=== PATIENT | female | born 1940 | race Caucasian/White ===

== ENCOUNTER 2020-06-10 10:19 | Observation (INO) | payer MEDICARE, SELFPAY ==
[2020-06-10] VITALS (10 sets, daily range): BP systolic 146–189; BP diastolic 58–109; PULSE 67–79; RESP 13–24; TEMP 36.3; O2SAT 97–100; BMI 31.5
--- NOTE | ~2020-06-10 | CT_ITS ---
EXAMINATION: CT brain wo con DATE: 06/12/2020 12:40 INDICATION: Closed head trauma TECHNIQUE: Computed tomography (CT) of the head was performed without intravenous contrast. The mA wa s adjusted according to patient size. Iterative reconstruction technique was employed. Exam dose: 60 5.33 mGy-cm total exam DLP. COMPARISON: CT brain Or MR brain FINDINGS: There are bilateral carotid siphon internal carotid artery calcifications. There is nonspecific diminished attenuation of the cerebral white matter, likely due to chronic small vessel ischemic changes. There is moderate cerebral and cerebellar atrophy. No intracranial mass lesion or hemorrhage or cerebrovascular accident is evident. No midline shift or mass effect effect. There is a cephalohematoma and subcutaneous emphysema in the high left posterior parietal area but no underlying skull fracture or cord contrecoup intracranial injury. No subdural o r epidural hematoma. There is some soft tissue density within the posterior left sphenoid sinus. Limited development of th e mastoid air cells. Bilateral hyperostosis frontalis interna, not likely of any clinical significance. IMPRESSION: No acute intracranial finding or skull fracture; posterior left parietal cephalohematoma , subcutaneous emphysema Cerebral atherosclerosis and chronic small vessel ischemic changes of the cerebral white matter Reviewed, dictated and finalized at [facility]. Reviewed, dictated and finalized at [facility]. IMPRESSION: No acute intracranial finding or skull fracture; posterior left pa rietal cephalohematoma, subcutaneous emphysema Cerebral atherosclerosis and chronic small vessel ischemic changes of the cereb ral white matter
--- NOTE | ~2020-06-10 | XR_ITS ---
EXAMINATION: XR chest 1V portable DATE: 06/10/2020 10:43 INDICATION: Fall. Hypertension and atrial fibrillation. TECHNIQUE: frontal view of the chest was obtained. COMPARISON: None FINDINGS: The lungs are clear with no focal airspace opacities, pulmonary edema, pleural effusion or pneumothor ax. . Mediastinal silhouette is within normal limits accounting for mild leftward rotation of the pat ient. Calcified bilateral hilar and mediastinal lymph nodes consistent with old granulomatous disease . IMPRESSION: 1. No acute cardiopulmonary disease. Reviewed, dictated and finalized at [facility].
--- NOTE | ~2020-06-10 | MR_ITS ---
EXAMINATION: MR brain/brain stem wo/w con DATE: 06/10/2020 17:57 INDICATION: Stroke. TECHNIQUE: Magnetic resonance imaging (MRI) of the brain and brainstem was performed without and with 16 mL MultiHance intravenous contrast. Sequences included sagittal and axial T1-weighted FSE, axial diffusion-weighted FS EPI, axial T2*-weighted GRE, axial T2-weighted FLAIR Propeller, and axial T2-we ighted Propeller. Postcontrast sequences included axial, sagittal, and coronal T1-weighted FSE. Appar ent diffusion coefficient (ADC) maps were created. COMPARISON: Head CT 06/10/2020 FINDINGS: There are scattered areas of nonspecific increased T2-weighted signal intensity in the cere bral white matter, which is within normal limits for the patient's age. There is no intracranial hemo rrhage, acute infarction, or abnormal intracranial mass lesion. The ventricles are normal in size. Th e mastoid air cells are normal. There is mild mucosal thickening in the paranasal sinuses. There are likely changes of ocular lens replacement surgeries. IMPRESSION: 1. Normal aging brain. Reviewed, dictated and finalized at [facility]. IMPRESSION: 1. Normal aging brain.
--- NOTE | ~2020-06-10 | CT_ITS ---
EXAMINATION: CT brain wo con, CT cervical spine wo con EXAM DATE: 06/10/2020 10:31 INDICATION: Fall, posterior head injury. TECHNIQUE: Spiral CT of the head was performed without contrast. Axial, coronal and sagittal images were reviewed. Spiral CT of the cervical spine was performed without contrast. Axial images were rev iewed. Coronal and sagittal reformatted images were also reviewed. The dose-length product (DLP) fo r this examination was 605.33 (accession [id number]), 299.42 (accession [id number]) mGy-cm. The exposure was tailored according to patient size, and iterative reconstruction (ASIR) was used as additional dose reduction technique. There is no prior study for comparison. FINDINGS: HEAD CT: There is hyperostosis frontalis. There is no acute intraparenchymal hemorrhage. No evidence of intraparenchymal brain mass lesion. No evidence of acute infarction. There is mild periventricul ar and subcortical hypodensity, nonspecific but probably related to small vessel ischemic disease. There is moderate prominence of the sulci and ventricles related to cerebral atrophy. There is intr acranial carotid arteriosclerosis. There is no mass effect or midline shift. There is no obstructiv e hydrocephalus suspected. There are no extra-axial collections. There are no acute calvarial fract ures. Patient has had bilateral ocular lens surgery. There is moderate-sized left posterior scalp c ontusion with small foci of subcutaneous gas indicating laceration. The visualized sinuses and mastoi d air cells are well aerated. CERVICAL CT: There is no evidence of acute cervical fracture. The odontoid process is intact. Pre- dens space is normal. Prevertebral soft tissue is normal. There are no soft tissue abnormalities id entified. There is no disc space widening or traumatic vertebral body subluxation suspected. There is moderate disc disease C5-6 and 6-7, advanced multilevel arthropathy. A detailed level by level ev aluation of spondylosis can be added as addendum if requested. IMPRESSION: 1. No acute intracranial findings or cervical fracture. 2. Moderate-sized left posterior scalp contusion, overlying laceration. 3. Age-related intracranial findings and cervical spondylosis. Reviewed, dictated and finalized at location [facility]. IMPRESSION: 1. No acute intracranial findings or cervical fracture. 2. Moderate-sized left posterior scalp contusion, overlying laceration. 3. Age-related intracranial findings and cervical spondylosis.
--- NOTE | 2020-06-10 10:30 | ECG_ITS ---
Measurements Intervals [place] Rate: 70 P: 76 MS: 144 QRS: 32 QRSD: 96 T: 64 QT: 403 QTc: 435 Interpretive Statements SINUS RHYTHM WITH MARKED SINUS ARRHYTHMIA BASELINE ARTIFACT- I, III, AVL, AVF NORMAL ECG Electronically Signed On 06-10-2020 12:10:16 CDT by Joel Berg D.O.
--- NOTE | 2020-06-10 10:40 | ED.HEATRA ---
HPI - Head Injury General Chief complaint: Head Injury Stated complaint: fall/posterior scalp lac Source: patient, EMS and old records reviewed Mode of arrival: EMS Limitations: no limitations History of Present Illness HPI Narrative: Patient is a 80-year-old female who presents to emergency department for evaluation of head injury that occurred just prior to arrival patient was reportedly standing and tripped over a concrete curb falling backwards striking the posterior head is unsure as to loss of consciousness presents per EMS. On arrival patient with GCS of 15 A&O x4. Patient is currently on warfarin for chronic atrial fibrillation. Patient notes she has been compliant with her medication. Patient notes dizziness since the fall that occurs with any head movement. Patient denies vomiting or other injury or complaints. Patient notes mild posterior headache Related Data Home Medications Medication Instructions Recorded Confirmed alprazolam See Rx Instructions .ROUTE .COMPLEX 06/10/20 amlodipine 06/10/20 lisinopril 20 mg BID 06/10/20 06/10/20 meloxicam DAILY 06/10/20 metformin mg BID 06/10/20 simvastatin 40 mg HS 06/10/20 06/10/20 warfarin 1600 06/10/20 warfarin 1600 06/10/20 Allergies Allergy/AdvReac Type Severity Reaction Status Date / Time No Known Allergies Allergy Verified 06/10/20 10:43 Review of Systems Review of Systems: All systems reviewed & are unremarkable except as noted in HPI and below PMFSH Past Medical History Medical History (Updated 06/10/20 @ 13:39 by Ramez Bay PA-C) Atrial fibrillation Hypertension Obesity Warfarin anticoagulation Family History Family History Mother Hypertension Family history of diabetes mellitus in first degree relative Family history of heart disease in male family member before age 55 Sibling Family history of arthritis Carcinoma of colon Family history of diabetes mellitus in first degree relative Social History Social History Smoking status: Never smoker Alcohol intake: never Gender identity (if verbalized by the patient): Female Exam Narrative: Exam Narrative: GENERAL: Well-appearing, obese, and in no acute distress. HEAD: Normocephalic, posterior scalp laceration EYES: PERRLA and EOMI. ENT: Nares clear, no rhinorrhea or epistaxis. Mucous membranes moist. NECK: Supple. No adenopathy or masses. CHEST: Clear to auscultation. No respiratory distress. No wheezes rales or rhonchi HEART: Regular rate and rhythm. No murmur heard. Normal peripheral pulses. ABDOMEN: Soft, nontender, nondistended EXTREMITIES: Normal range of motion. No edema. No cervical thoracic or lumbar tenderness SKIN: Warm, dry, no rash. NEURO: No focal deficits. Alert and oriented x3. Cranial nerves II through XII grossly intact. Normal speech. GCS of 15 PSYCH: Normal mood and affect. Course Course Emergency Course: Patient presented with head injury secondary to what was described as a mechanical fall patient since the fall has been dizzy and had difficulty with standing and ambulation was hydrated evaluated in the emergency department and will be brought into the hospital for further evaluation patient agrees with this plan ABCs and vital signs intact and stable Consultations Consultation #1: Discussed case with hospitalist Heydi who will admit the patient and will follow the patient would like the patient put on med telemetry will also have MRI ordered Date: 06/10/20 Time: 13:37 Vital Signs Vital signs: Vital Signs Temperature 97.4 F L 06/10/20 10:20 Pulse Rate 69 06/10/20 10:20 Respiratory Rate 18 06/10/20 10:20 Blood Pressure 154/80 H 06/10/20 10:20 Pulse Oximetry 99 06/10/20 10:20 Temperature 97.4 F L 06/10/20 10:20 Pulse Rate 73 06/10/20 12:07 Respiratory Rate 13 06/10/20 12:07 Blood Pressure 189/84
[2020-06-10 10:51] LABS: Glucose Point of Care 162 (65-105)
[2020-06-10] MEDS: MECLIZINE HCL 25 MG TABLET PO (11:10)
[2020-06-10] MEDS: SODIUM CHLORIDE 0.9% IV 500 ML 999 ML IV CONT (11:10)
[2020-06-10 11:13] LABS: INR 1.9; Prothrombin Time 22.1 Seconds (11.1-14.7)
[2020-06-10 11:13] LABS: Basophils Percent Auto 0.3 % (0.2-1.2); Eosinophils Absolute Auto 0.1 K/mm3 (0-0.3); Eosinophils Percent Auto 1.4 % (0-4.4); Hematocrit 35.9 % (37.0-47.0); Hemoglobin 11.5 g/dL (12.0-15.0); Immature Granulocyte Absolute 0.03 K/mm3 (0.00-0.031); Immature Granulocyte Percent A 0.5 % (0-0.5); Lymphocytes Absolute Auto 2.02 K/mm3 (0.9-3.2); Lymphocytes Percent Auto 31.4 % (18.3-44.2); Mean Corpuscular Hemoglobin 30.5 pg (26-34); Mean Corpuscular Volume 95.2 fl (80-100); Mean Platelet Volume 10.5 fl (7.4-10.4); Monocytes Absolute Auto 0.4 K/mm3 (0.1-0.6); Monocytes Percent Auto 6.4 % (2.6-8.5); Neutrophils Absolute Auto 3.9 K/mm3 (1.3-6.7); Platelet Count Result 170 k/mm3 (150-375); Red Blood Count 3.77 M/mm3 (4.2-5.4); Red Cell Distribution Width 12.4 % (11.5-14.5); White Blood Count 6.4 K/mm3 (4.5-10.0)
[2020-06-10 11:14] LABS: Partial Thromboplastin Time 28.3 SECONDS (22.3-36.8)
[2020-06-10 11:36] LABS: Troponin I < 0.012 ng/mL (0.000-0.034)
[2020-06-10] MEDS: lisinopriL 20 MG TABLET PO (12:05)
--- NOTE | 2020-06-10 12:10 | PC.NURSE ---
Attempted to take pt to bathroom. Pt needed assistance sitting up in bed and was too dizzy to stand up. Pt laid back down and used bedpan to void. EDP notified.
[2020-06-10 12:30] LABS: Add Urine Microscopic? YES; Appearance Urine Clear (Clear); Bilirubin Urine Negative (Negative); Blood Urine Negative (Negative); Color Urine Yellow (Yellow); Glucose Urine UA Negative (Negative); Ketones Urine Negative (Negative); Leukocyte Esterase Ur Trace LEU/UL (Negative); Mucus Urine Rare /lpf; Nitrate Urine Negative (Negative); Protein Urine Negative (Negative); RBC Urine 0-2 /hpf (0-2); Specific Grav Ur 1.019 (1.001-1.035); Squamous Epithelial Cell Urine Occasional /hpf (Few); Urobilinogen Urine Negative mg/dL (<2.0)
[2020-06-10 12:39] LABS: Amphetamine Screen Urine Negative (Negative); Barbiturate Screen Urine Negative (Negative); Benzodiazepines Screen Urine Positive (Negative); Cannabinoid Screen Urine Negative (Negative); Cocaine Screen Urine Negative (Negative); Methadone Screen Urine Negative (Negative); Opiate Screen Urine Negative (Negative); Phencyclidine Screen Urine Negative (Negative)
--- NOTE | 2020-06-10 14:00 | PM.IMHP ---
H&P: HPI History of Present Illness Date/Time: 06/10/20 14:00 Chief Complaint: Fall. Narrative: This is a 72-year-old female with paroxysmal atrial fibrillation on warfarin, hypertension, dyslipidemia, and type 2 diabetes mellitus who presented to the emergency department earlier today via EMS for evaluation after a fall. Just prior to arrival she lost her balance while stepping down a curb, causing her to fall back and strike her head. On EMS arrival she reported feeling dizzy when they helped stand her up and reportedly she seemed a bit confused and repetitive early on however is now alert and oriented x4. She does not believe that she lost consciousness and denies any other injury aside from a posterior scalp contusion. She has no complaints at the time my evaluation and specifically denies headache, diplopia, focal weakness, paresthesias, confusion, chest pain, pleuritic pain, palpitations, shortness of breath, nausea, vomiting, diarrhea, and dysuria. Review of Systems Review of Systems: Narrative: Twelve systems were reviewed with pertinent positives and negatives as per HPI. Except as documented, all other systems were reviewed and are negative. [facility] Past Medical History Medical History Anxiety Dyslipidemia Hypertension Obesity Paroxysmal atrial fibrillation Type 2 diabetes mellitus Warfarin anticoagulation Surgical History Surgical History (Updated 06/11/20 @ 00:24 by Francy Alex PA-C) History of bilateral cataract extraction History of cholecystectomy History of hysterectomy History of repair of right rotator cuff Family History Family History Mother Hypertension Family history of diabetes mellitus in first degree relative Family history of heart disease in male family member before age 55 Sibling Family history of arthritis Carcinoma of colon Family history of diabetes mellitus in first degree relative Social History Social History (Updated 06/11/20 @ 00:24 by Francy Alex PA-C) Social History: The patient is and lives with her and 1 son in [place]. Lifelong nonsmoker. No alcohol or illicit substance abuse. Her Oc is her surrogate decision maker. She wishes to be a full code. Meds Home Medications and Allergies Home Medications Medication Instructions Recorded Confirmed Type alprazolam 0.5 mg PO TID PRN 06/10/20 06/10/20 History amlodipine 5 mg PO DAILY 06/10/20 06/10/20 History aspirin [Adult Low Dose Aspirin] 81 mg PO DAILY 06/10/20 06/10/20 History glimepiride 4 mg PO DAILY 06/10/20 06/10/20 History lisinopril 20 mg BID 06/10/20 06/10/20 History meloxicam 15 mg PO DAILY 06/10/20 06/10/20 History metformin 1,000 mg BID 06/10/20 06/10/20 History simvastatin 40 mg PO HS 06/10/20 06/10/20 History warfarin 2 mg PO DAILY 06/10/20 06/10/20 History warfarin 4 mg PO DAILY 06/10/20 06/10/20 History Allergies Allergy/AdvReac Type Severity Reaction Status Date / Time No Known Allergies Allergy Verified 06/10/20 15:24 Vital Signs Vital Signs - 24 hr 06/10/20 10:20 06/10/20 10:50 06/10/20 12:07 Temperature 97.4 F L Pulse Rate 69 73 73 Respiratory Rate 18 24 H 13 Blood Pressure 154/80 H 178/109 H 189/84 H Pulse Oximetry 99 97 100 Exam Narrative: Exam Narrative: General: Well-developed female supine in bed in no distress. Weight: 83.4 kilograms. BMI: 31.6. HEENT: Posterior scalp laceration has been sutured. Some bruising around this area. PERRL, EOMI. Sclerae anicteric. Oral mucosa moist. Neck: Supple. No JVD. Respiratory: Lungs are clear to auscultation bilaterally. Cardiovascular: Regular rate and rhythm with S1-S2. Gastrointestinal: Abdomen is soft, nontender, and nondistended with positive bowel sounds. Skin: Warm and dry. No rash or lesions on limited exam. Extremities: No cyanosis, clubbing, or s
--- NOTE | 2020-06-10 14:40 | PCOTNOTE ---
OT evaluation attempted. Patient not yet in room from ED. Will need to be admitted by nursing prior to OT evaluation.
--- NOTE | 2020-06-10 15:00 | ADMGEN ---
This patient, Anusha Rice, was admitted to 2 Medical Room 249-01. Patient/family oriented to hospital policies and general routines including ID bracelet, bed and alarms, visiting hours, pain management, procedures, bathroom and other care routines, personal items, smoking policy, room service/diet, and visiting hours. Information on how to activate the Rapid Response Team has been discussed. Patient/Family are encouraged to report perceived risks to care and to ask questions if they do not understand what they are told or what they should do.
[2020-06-10 15:20] LABS: Alanine Aminotransferase 25 U/L (4-35); Albumin Level 4.4 g/dL (3.5-5.1); Alkaline Phosphatase 83 U/L (38-126); Anion Gap 9 mmol/L (8-16); Aspartate Amino Transferase 71 U/L (14-36); Bilirubin,Total 0.5 mg/dL (0.2-1.3); Blood Urea Nitrogen 13 mg/dL (7-17); Calcium 8.8 mg/dL (8.4-10.2); Carbon Dioxide 27 mmol/L (22-30); Chloride 102 mmol/L (98-107); Estimated CRCL calculation 69 ml/min; Estimated Glomerular Filt Rate > 60; Glucose 160 mg/dL (65-105); Potassium 4.3 mmol/L (3.4-5.0); Sodium 138 mmol/L (137-145)
[2020-06-10 15:34] LABS: Hemoglobin A1C 5.8 % (<5.7)
[2020-06-10] MEDS: ALPRAZolam (*CRX) 0.5 MG TABLET PO (16:22)
[2020-06-10 17:03] LABS: Glucose Point of Care 183 (65-105)
[2020-06-10 17:26] LABS: Hemoglobin A1C 5.8 % (<5.7)
[2020-06-10] MEDS: LACTATED RINGERS 1,000 ML 75 ML IV CONT (18:02)
[2020-06-10] MEDS: FAMOTIDINE 20 MG/2 ML VIAL IV PUSH (21:40)
[2020-06-10 21:50] LABS: Glucose Point of Care 131 (65-105)
[2020-06-11] VITALS (13 sets, daily range): BP systolic 139–163; BP diastolic 49–59; PULSE 73–95; RESP 16–18; TEMP 36.1–37; O2SAT 94–98
[2020-06-11] MEDS: ALPRAZolam (*CRX) 0.5 MG TABLET PO ×2 (00:13→20:00)
[2020-06-11 06:09] LABS: Basophils Percent Auto 0.3 % (0.2-1.2); Eosinophils Absolute Auto 0.1 K/mm3 (0-0.3); Eosinophils Percent Auto 2.2 % (0-4.4); Hematocrit 33.8 % (37.0-47.0); Hemoglobin 10.7 g/dL (12.0-15.0); Immature Granulocyte Absolute 0.01 K/mm3 (0.00-0.031); Immature Granulocyte Percent A 0.2 % (0-0.5); Lymphocytes Absolute Auto 2.19 K/mm3 (0.9-3.2); Lymphocytes Percent Auto 37.8 % (18.3-44.2); Mean Corpuscular HGB Conc 31.7 g/dl (32-36); Mean Corpuscular Hemoglobin 30.1 pg (26-34); Mean Corpuscular Volume 95.2 fl (80-100); Monocytes Absolute Auto 0.5 K/mm3 (0.1-0.6); Monocytes Percent Auto 8.8 % (2.6-8.5); Neutrophils Absolute Auto 2.9 K/mm3 (1.3-6.7); Neutrophils Percent Auto 50.7 % (45.5-73.1); Platelet Count Result 152 k/mm3 (150-375); Red Blood Count 3.55 M/mm3 (4.2-5.4); Red Cell Distribution Width 12.7 % (11.5-14.5); White Blood Count 5.8 K/mm3 (4.5-10.0)
[2020-06-11 06:16] LABS: INR 1.8; Prothrombin Time 21.9 Seconds (11.1-14.7)
[2020-06-11 06:26] LABS: Anion Gap 4 mmol/L (8-16); Blood Urea Nitrogen 9 mg/dL (7-17); Calcium 8.6 mg/dL (8.4-10.2); Carbon Dioxide 28 mmol/L (22-30); Chloride 105 mmol/L (98-107); Estimated CRCL calculation 69 ml/min; Estimated Glomerular Filt Rate > 60; Glucose 104 mg/dL (65-105); Potassium 4.3 mmol/L (3.4-5.0); Sodium 137 mmol/L (137-145)
[2020-06-11] MEDS: LACTATED RINGERS 1,000 ML 75 ML IV CONT ×2 (06:29→19:55)
[2020-06-11 07:42] LABS: Glucose Point of Care 134 (65-105)
[2020-06-11] MEDS: FAMOTIDINE 20 MG/2 ML VIAL IV PUSH ×2 (08:21→19:59)
[2020-06-11] MEDS: ASPIRIN 81 MG ENTERIC TABLET PO (08:22)
[2020-06-11] MEDS: GLIMEPIRIDE 2 MG TABLET 4 MG PO (08:22)
[2020-06-11] MEDS: lisinopriL 20 MG TABLET BY MOUTH ×2 (08:22→16:50)
[2020-06-11] MEDS: amLODIPine BESYLATE 5 MG TABLET PO (08:22)
[2020-06-11 11:27] LABS: Glucose Point of Care 109 (65-105)
--- NOTE | 2020-06-11 15:03 | PM.IMPN ---
Progress Note: A&P Assessment and Plan (1) Fall from ground level: Code(s): W18.30XA - Fall on same level, unspecified, initial encounter Status: Acute Assessment and Plan: patient with no loss of consciousness missed her step and fell down wound laceration to the scalp a status post sutures (2) Type 2 diabetes mellitus: Code(s): E11.9 - Type 2 diabetes mellitus without complications Status: Acute Assessment and Plan: patient on metformin and glipizide will hold insulin sliding scale as needed Accu-Cheks AC and HS (3) Paroxysmal atrial fibrillation: Code(s): I48.0 - Paroxysmal atrial fibrillation Status: Acute Assessment and Plan: rate controlled holding warfarin due to fall with closed trauma to the head (4) Closed head injury: Code(s): S09.90XA - Unspecified injury of head, initial encounter Status: Acute Assessment and Plan: status post suturing CT head reviewed MRI brain reviewed (5) Dizziness: Code(s): R42 - Dizziness and giddiness Status: Acute Assessment and Plan: will monitor blood pressure is stable (6) Normocytic anemia: Code(s): D64.9 - Anemia, unspecified Status: Acute Assessment and Plan: continue to monitor (7) Dyslipidemia: Code(s): E78.5 - Hyperlipidemia, unspecified Status: Acute Assessment and Plan: continue to monitor Subjective Date/time seen: 06/11/20 15:03 I a.m. very dizzy Review of Systems Review of Systems: Narrative: patient is feeling very dizzy when sitting up by the age of debate and dangling her feet Constitutional: Comments: no fevers no rigors no chills Eyes: Comments: no vision changes Cardiovascular: Comments: no syncope or near syncope no palpitations no chest pain or shortness of breath no PND no orthopnea Respiratory: Comments: no cough no sputum production Gastrointestinal: Comments: no nausea no vomiting no abdominal pain no diarrhea Genitourinary: Comments: no pain or burning with urination Musculoskeletal: Comments: no muscle aches or joint pain Integumentary/Breasts: Comments: his scalp wound laceration after fall with sutures on Neurologic: Comments: no loss of consciousness no sensorimotor deficit Exam Narrative: Exam Narrative: laying in bed Const: General: comfortable, no acute distress, well developed, alert and awake Nutritional Appearance: overweight Orientation/consciousness: patient oriented x3 HENMT: Head: normal to inspection, normocephalic, atraumatic and laceration (coronal-occipital) Ears: hearing grossly normal bilaterally Face and sinus: normal facial exam Eyes: General: appearance normal, both eyes and all related structures Pupils: Equal, round and reactive pupils present EOM: EOMs intact bilaterally Neck: Neck: full ROM, no lymphadenopathy and no JVD Thyroid: thyroid normal Lymphatic: no lymphadenopathy noted Resp: Effort & Inspection: normal respiratory effort and able to speak in complete sentences Auscultation: clear to auscultation bilaterally Cardio: Jugular venous distension: no JVD Rate: regular rate Rhythm: regular rhythm Heart sounds: S1 normal heart sound present and S2 normal heart sound present GI: GI Palp: Yes Soft to palpation and Yes No hepatosplenomegaly present : General: Yes deferred Skin: Rashes: no rashes Wounds: no wounds Neuro: General: patient oriented x3 and CN's II-XI intact bilaterally Cranial nerves: Yes CN's II-XII intact bilaterally and Yes Equal, round and reactive pupils present Cognition (Neuro): normal cognition Speech: normal speech Gait exam (Neuro): Normal gait present Motor exam (neuro): 5/5 motor strength present throughout Extrem: General: normal to inspection, full ROM, no joint enlargement and no pedal edema Objective Data Vital Signs Vital Signs: Vital Signs - 24 hr 06/10/20 16:00 06/10/20 17:0
[2020-06-11 16:40] LABS: Glucose Point of Care 111 (65-105)
[2020-06-11] MEDS: SIMVASTATIN 20 MG TABLET 40 MG PO (20:00)
[2020-06-11 20:09] LABS: Glucose Point of Care 107 (65-105)
[2020-06-12] VITALS (15 sets, daily range): BP systolic 142–168; BP diastolic 39–73; PULSE 65–83; RESP 16; TEMP 36.1–37.2; O2SAT 94–100
[2020-06-12 07:22] LABS: Glucose Point of Care 145 (65-105)
[2020-06-12] MEDS: amLODIPine BESYLATE 5 MG TABLET PO (08:11)
[2020-06-12] MEDS: lisinopriL 20 MG TABLET BY MOUTH ×2 (08:11→17:20)
[2020-06-12] MEDS: GLIMEPIRIDE 2 MG TABLET 4 MG PO (08:11)
[2020-06-12] MEDS: ASPIRIN 81 MG ENTERIC TABLET PO (08:11)
[2020-06-12] MEDS: FAMOTIDINE 20 MG/2 ML VIAL IV PUSH ×2 (08:12→21:02)
[2020-06-12] MEDS: LACTATED RINGERS 1,000 ML 75 ML IV CONT (08:12)
[2020-06-12 11:24] LABS: Glucose Point of Care 120 (65-105)
--- NOTE | 2020-06-12 15:50 | PM.IMPN ---
Progress Note: A&P Assessment and Plan (1) Fall from ground level: Code(s): W18.30XA - Fall on same level, unspecified, initial encounter Status: Acute Assessment and Plan: no loss of consciousness mechanical fall PT OT participating in therapy sessions with PT and OT (2) Closed head injury: Code(s): S09.90XA - Unspecified injury of head, initial encounter Status: Acute Assessment and Plan: repeat CT today with no acute intracranial or subdural hematoma (3) Dizziness: Code(s): R42 - Dizziness and giddiness Status: Acute Assessment and Plan: likely secondary to head trauma improved (4) Type 2 diabetes mellitus: Code(s): E11.9 - Type 2 diabetes mellitus without complications Status: Acute Assessment and Plan: holding Metformin glimepiride was continued continue to monitor Accu-Cheks AC and HS insulin sliding scale as (5) Paroxysmal atrial fibrillation: Code(s): I48.0 - Paroxysmal atrial fibrillation Status: Acute Assessment and Plan: rate controlled on no anticoagulant (6) Dyslipidemia: Code(s): E78.5 - Hyperlipidemia, unspecified Status: Acute Assessment and Plan: continue statin (7) Normocytic anemia: Code(s): D64.9 - Anemia, unspecified Status: Acute Assessment and Plan: follow-up in outpatient setting Subjective Date/time seen: 06/12/20 15:50 I am less dizzy Review of Systems Review of Systems: Narrative: patient states he is still feeling some dizziness but feeling much better on her gait and has been walking with the walker Exam Narrative: Exam Narrative: sitting in chair Const: General: comfortable, no acute distress, well developed, alert and awake Nutritional Appearance: average body habitus Orientation/consciousness: patient oriented x3 HENMT: Head: normal to inspection, normocephalic and laceration ( in the coronal occipital area sutures in place) Ears: hearing grossly normal bilaterally Face and sinus: normal facial exam Eyes: General: appearance normal, both eyes and all related structures Pupils: Equal, round and reactive pupils present EOM: EOMs intact bilaterally Neck: Neck: full ROM, no lymphadenopathy and no JVD Thyroid: thyroid normal Lymphatic: no lymphadenopathy noted Resp: Effort & Inspection: normal respiratory effort and able to speak in complete sentences Auscultation: clear to auscultation bilaterally Cardio: Jugular venous distension: no JVD Rate: regular rate Rhythm: regular rhythm Heart sounds: S1 normal heart sound present and S2 normal heart sound present GI: GI Palp: Yes Soft to palpation and Yes No hepatosplenomegaly present : General: Yes deferred Skin: Rashes: no rashes Wounds: no wounds Neuro: General: patient oriented x3 and CN's II-XI intact bilaterally Cranial nerves: Yes CN's II-XII intact bilaterally and Yes Equal, round and reactive pupils present Cognition (Neuro): normal cognition Speech: normal speech Gait exam (Neuro): Normal gait present Motor exam (neuro): 5/5 motor strength present throughout Extrem: General: normal to inspection, full ROM, no joint enlargement and no pedal edema Objective Data Vital Signs Vital Signs: Vital Signs - 24 hr 06/11/20 16:00 06/11/20 20:00 06/11/20 21:55 Temperature 98.1 F 97.0 F L Pulse Rate 76 79 76 Respiratory Rate 16 16 Blood Pressure 145/52 H 163/54 H Pulse Oximetry 98 95 06/12/20 00:00 06/12/20 02:00 06/12/20 04:00 Temperature 97.8 F Pulse Rate 68 68 65 Respiratory Rate 16 Blood Pressure 152/70 H Pulse Oximetry 99 06/12/20 06:24 06/12/20 06:25 06/12/20 06:26 Temperature 97.0 F L Pulse Rate 73 Respiratory Rate 16 Blood Pressure 154/63 H 155/73 H 151/67 H Pulse Oximetry 95 06/12/20 10:00 06/12/20 14:00 Temperature 98.5 F 98.2 F Pulse Rate 67 70 Respiratory Rate 16 16 Blood Pressure 149/60 H 142
[2020-06-12 16:49] LABS: Glucose Point of Care 100 (65-105)
[2020-06-12] MEDS: ALPRAZolam (*CRX) 0.5 MG TABLET PO (21:02)
[2020-06-12] MEDS: SIMVASTATIN 20 MG TABLET 40 MG PO (21:02)
[2020-06-12 21:15] LABS: Glucose Point of Care 222 (65-105)
[2020-06-13] VITALS (8 sets, daily range): BP systolic 139–151; BP diastolic 54–66; PULSE 67–75; RESP 16; TEMP 36.2–36.7; O2SAT 97–100
[2020-06-13] MEDS: GLIMEPIRIDE 2 MG TABLET 4 MG PO (08:22)
[2020-06-13] MEDS: amLODIPine BESYLATE 5 MG TABLET PO (08:22)
[2020-06-13] MEDS: lisinopriL 20 MG TABLET BY MOUTH (08:23)
[2020-06-13] MEDS: ASPIRIN 81 MG ENTERIC TABLET PO (08:23)
[2020-06-13] MEDS: FAMOTIDINE 20 MG/2 ML VIAL IV PUSH (08:23)
[2020-06-13 09:08] LABS: Glucose Point of Care 128 (65-105)
--- NOTE | 2020-06-13 10:20 | PM.DS ---
DS: Admitting Diagnosis Admitting Diagnosis Admitting Diagnosis: (1) Fall from ground level: (2) Closed head injury: (3) Dizziness: (4) Paroxysmal atrial fibrillation: (5) Warfarin anticoagulation: (6) Hypertension: (7) Type 2 diabetes mellitus: (8) Dyslipidemia: (9) Normocytic anemia: DS: Discharge Diagnosis Discharge Diagnosis (1) Fall from ground level: Code(s): W18.30XA - Fall on same level, unspecified, initial encounter Status: Acute Assessment and Plan: Patient missed a step No loss of consciousness (2) Closed head injury: Code(s): S09.90XA - Unspecified injury of head, initial encounter Status: Acute Assessment and Plan: Trauma to the head when falling to the ground CT obtained none time of arrival was significant for cephalohematoma Repeat CT of the head did not show any subdural or intracranial bleed MRI reviewed as well (3) Occipital scalp laceration: Code(s): S01.01XA - Laceration without foreign body of scalp, initial encounter Status: Acute Assessment and Plan: Is status post suturing Will be removed at patient's PCPs office (4) Dizziness: Code(s): R42 - Dizziness and giddiness Status: Acute Assessment and Plan: Much improved Likely secondary to trauma (5) Normocytic anemia: Code(s): D64.9 - Anemia, unspecified Status: Acute Assessment and Plan: Stable continue to monitor (6) Type 2 diabetes mellitus: Code(s): E11.9 - Type 2 diabetes mellitus without complications Status: Acute Assessment and Plan: On oral agents Follow-up in outpatient Quarterly glycated hemoglobin (7) Dyslipidemia: Code(s): E78.5 - Hyperlipidemia, unspecified Status: Acute Assessment and Plan: Continue statin (8) Paroxysmal atrial fibrillation: Code(s): I48.0 - Paroxysmal atrial fibrillation Status: Acute Assessment and Plan: Anticoagulated however warfarin has been held due to head trauma and laceration wound DS: Summary Hospital Course Reason for hospitalization: Fall Hospital Course: This is a 80-year-old female with past medical history significant for atrial fibrillation type 2 diabetes mellitus poorly controlled hypertension resting tremors patient presented to the emergency room after she sustained a fall while walking in she missed a step while crossing the street to get in her car falling back and hitting her head patient did not have any loss of conscious she was found to have a laceration wound in the left coronal occipital area for which he required suturing a preliminary imaging studies CT head and MRI did not show any acute bleeding. The patient was very dizzy repeated CT of the head did not show subdural bleed or intracranial bleed she continue to participate in physical therapy sessions with PT and OT and did well. Consults obtained: No consults Procedures: Suturing of the scalp laceration Status at Discharge Cognitive/behavioral status at discharge: AAOX3 Functional status at discharge: independent ambulation Overall status at discharge: patient is back to baseline Time Spent with Patient Time attestation: Total time spent providing and/or coordinating discharge services: Time spent: Greater than 30 minutes Exam Narrative: Exam Narrative: Sitting in chair Const: General: comfortable, no acute distress, well developed, alert and awake Nutritional Appearance: average body habitus Orientation/consciousness: patient oriented x3 HENMT: Head: normocephalic and other (Laceration wound on the left-sided coronal occipital area) Ears: hearing grossly normal bilaterally Face and sinus: normal facial exam Eyes: General: appearance normal, both eyes and all related structures Pupils: Equal, round and reactive pupils present EOM: EOMs intact bilaterally Neck: Neck: full
== END 2020-06-13 12:30 | disposition home or self-care (01) ==
LOC: ANHED 14:18 → ANH2MED 17:18 → ANH3MEDSUR 06-15 13:40
PROVIDERS: Emergency Medicine Emergency Medical Services; Physician Assistant; Admitting Provider Internal Medicine; Emergency Provider Emergency Medicine; PCP Internal Medicine; Visit Provider Internal Medicine
DX: S09.90XA Unspecified injury of head, initial encounter (principal); W10.1XXA Fall (on)(from) sidewalk curb, initial encounter; R42 Dizziness and giddiness; I48.91 Unspecified atrial fibrillation; Z79.01 Long term (current) use of anticoagulants; I10 Essential (primary) hypertension; E11.9 Type 2 diabetes mellitus without complications; E78.5 Hyperlipidemia, unspecified; D64.9 Anemia, unspecified; Z79.899 Other long term (current) drug therapy; Z79.84 Long term (current) use of oral hypoglycemic drugs
CPT/HCPCS: 12002; 36415; 70450; 70553; 71045; 72125; 80048; 80053; 80307; 81001; 83036; 84484; 85025; 85610; 85730; 93005; 96361; 96365; 96375; 96376; 97110; 97116; 97161; 97165; 97530; 99285; A9270; A9577; G0378; J0131; J7040; J7120